=== PATIENT | female | born 1995 | race Caucasian/White ===

== ENCOUNTER 2017-03-22 08:25 | Emergency (ER) | payer BC, OTHER ==
[2017-03-22 08:35] VITALS: BP 140/83
[2017-03-22] MEDS ORDERED: predniSONE TAB* 20 MG PO ONE (08:42)
--- NOTE | 2017-03-22 08:48 | UC ---
Skin Complaint HPI - HPI Summary HPI Summary: RASH ON BOTH ARMS, NECK AND FACE X 3 DAYS + ITCHY, ? POISON JJ HAS BEEN WEED WHACKING 3 DAYS AGO NO SOB, NO WHEEZING - History of Current Complaint Chief Complaint: UCSkin Time Seen by Provider: 03/22/17 08:39 Stated Complaint: RASH Hx Obtained From: Patient Hx Last Menstrual Period: 03/17/17 ?: No Onset/Duration: Gradual Onset, Lasting Days - 1, Still Present Timing: Constant Onset Severity: Moderate Current Severity: Moderate Location: Discrete - BOTH ARMS, FACE AND NECK Character: Swelling, Pruritus, Redness Aggravating: Nothing Alleviating: Nothing Associated Signs & Symptoms: Positive: Rash - Allergy/Home Medications Allergies/Adverse Reactions: Allergies Allergy/AdvReac Type Severity Reaction Status Date / Time Penicillins [PCN] Allergy Unknown Unknown Verified 03/22/17 08:29 Reaction Details Review of Systems Constitutional: Negative Skin: Rash Eyes: Negative ENT: Negative Respiratory: Negative Cardiovascular: Negative All Other Systems Reviewed And Are Negative: Yes PMH/Surg Hx/FS Hx/Imm Hx Cardiovascular History Of: Denies: Pacemaker/ICD Respiratory History Of: Reports: Asthma - HX OF A CHILD - Surgical History Surgical History: Yes Surgery Procedure, Year, and Place: TONSILLECTOMY. REPAIR OF FRACTURED NOSED X 2 - Family History Known Family History: Negative: Diabetes - Social History Alcohol Use: Rare Substance Use Type: None Smoking Status (MU): Never Smoked Tobacco Physical Exam Triage Information Reviewed: Yes Appearance: Well-Appearing, No Pain Distress, Well-Nourished Vital Signs: Initial Vital Signs Temp 97.9 F 03/22/17 08:30 Pulse 76 03/22/17 08:30 Resp 18 03/22/17 08:30 BP 140/83 03/22/17 08:30 Pulse Ox 99 03/22/17 08:30 Vital Signs Reviewed: Yes Eye Exam: Normal Eyes: Positive: Conjunctiva Clear ENT: Positive: Normal ENT inspection, Hearing grossly normal, Pharynx normal Neck: Positive: Supple Respiratory: Positive: Chest non-tender, Lungs clear, Normal breath sounds Cardiovascular: Positive: RRR, No Murmur, Pulses Normal Musculoskeletal Exam: Normal Skin: Positive: rashes - MACULOPAPULARY RASH ON BOTH ARMS, FACE AND NECK Course/Dx - Diagnoses Provider Diagnoses: POISON JJ Discharge - Discharge Plan Condition: Stable Disposition: HOME Prescriptions: predniSONE TAB* [Deltasone TAB*] 40 mg PO DAILY #10 tab Patient Education Materials: Poison Jj (ED) Referrals: Sam Billings MD [Primary Care Provider] - If Needed
== END 2017-03-22 09:09 | disposition home or self-care (01) ==
LOC: UCCORT 08:25
DX: L23.7 Allergic contact dermatitis due to plants, except food (principal); Z88.0 Allergy status to penicillin; J45.909 Unspecified asthma, uncomplicated
CPT/HCPCS: 99212; G0463; J7512

== ENCOUNTER 2017-03-31 09:31 | Emergency (ER) | payer BC ==
[2017-03-31 10:08] VITALS: BP 136/69
--- NOTE | 2017-03-31 10:11 | UC ---
Skin Complaint HPI - HPI Summary HPI Summary: rash on arms, neck , face x 2 weeks + poison milagros , was placed on prednisone with good improvement, rash came back after she was done with prednisone + itchy, no new food , detergent, soap - History of Current Complaint Chief Complaint: UCRash Time Seen by Provider: 03/31/17 09:38 Stated Complaint: RASH Hx Obtained From: Patient Hx Last Menstrual Period: 03/11/17 ?: No Onset/Duration: Gradual Onset, Lasting Weeks - 2, Still Present Timing: Constant Onset Severity: Moderate Current Severity: Moderate Pain Intensity: 0 Pain Scale Used: 0-10 Numeric Location: Face, Other - arms, chest, neck Character: Pruritus, Redness Aggravating: Nothing Alleviating: Other - prednisone Associated Signs & Symptoms: Positive: Rash. Negative: Nausea, Vomiting, Numbness, Thirst, Diaphoresis, Weakness, Pallor, Shivering, Fever, Chills, Cough , Chest Pain, Hoarseness, Abdominal Pain - Allergy/Home Medications Allergies/Adverse Reactions: Allergies Allergy/AdvReac Type Severity Reaction Status Date / Time Penicillins [PCN] Allergy Unknown Unknown Verified 03/31/17 09:38 Reaction Details Review of Systems Constitutional: Negative Skin: Rash Eyes: Negative ENT: Negative Respiratory: Negative Cardiovascular: Negative All Other Systems Reviewed And Are Negative: Yes PMH/Surg Hx/FS Hx/Imm Hx Previously Healthy: Yes - Surgical History Surgical History: Yes Surgery Procedure, Year, and Place: TONSILLECTOMY. REPAIR OF FRACTURED NOSED X 2 - Family History Known Family History: Negative: Diabetes - Social History Alcohol Use: Rare Substance Use Type: None Smoking Status (MU): Never Smoked Tobacco Physical Exam Triage Information Reviewed: Yes Appearance: Well-Appearing, No Pain Distress, Well-Nourished Vital Signs: Initial Vital Signs Temp 97.9 F 03/31/17 09:40 Pulse 72 03/31/17 09:40 Resp 18 03/31/17 09:40 BP 136/69 03/31/17 09:40 Pulse Ox 100 03/31/17 09:40 Vital Signs Reviewed: Yes Eyes: Positive: Conjunctiva Clear ENT: Positive: Normal ENT inspection, Hearing grossly normal, Pharynx normal Neck: Positive: Supple, Nontender, No Lymphadenopathy Respiratory: Positive: Chest non-tender, Lungs clear, Normal breath sounds Cardiovascular: Positive: RRR, No Murmur, Pulses Normal Abdominal Exam: Normal Abdomen Description: Positive: Nontender, Soft Bowel Sounds: Positive: Present Skin: Positive: rashes - maculopapulary rash on bilateral arms, neck and face Course/Dx - Diagnoses Provider Diagnoses: Dermatitis Discharge - Discharge Plan Condition: Stable Disposition: HOME Prescriptions: Triamcinolone 0.1% CREAM(NF) [Kenalog Cream 0.1%(NF)] 1 applic TOPICAL BID #60 gm predniSONE TAB* [Deltasone TAB*] 20 mg PO DAILY #7 tab Patient Education Materials: Dermatitis (ED) Referrals: Sam Billings MD [Primary Care Provider] - 7 Days Additional Instructions: ? Poison Milagros prednisone 20 mg daily x 7 days triamcinolone 2x per day
== END 2017-03-31 10:06 | disposition home or self-care (01) ==
LOC: UCCORT 09:31
DX: L30.9 Dermatitis, unspecified (principal); Z88.0 Allergy status to penicillin
CPT/HCPCS: 99212; G0463

== ENCOUNTER 2018-03-13 14:33 | Emergency (ER) | payer BC ==
[2018-03-13 15:11] VITALS: BP 132/81
--- NOTE | 2018-03-13 15:19 | UC ---
Skin Complaint HPI - HPI Summary HPI Summary: Pt c/o of itchy rash on left upper extremity and left side of neck. She has a known exposure to poison jj. - History of Current Complaint Hx Obtained From: Patient Hx Last Menstrual Period: 02/28/18 ?: No Onset/Duration: Sudden Onset, Still Present Skin Exposure Onset/Duration: Days Ago Timing: Constant Onset Severity: Mild Current Severity: Mild Pain Intensity: 0 Pain Scale Used: 0-10 Numeric Location: Discrete - left arm and left side of anterior neck Character: Pruritus, Redness Aggravating Factor(s): Touch Alleviating Factor(s): Nothing Associated Signs & Symptoms: Positive: Rash Related History: Possible Reaction to: Environmental Exposure Similar Episode/Dx as: poison jj <Jacinda Kinsey NP - Last Filed: 03/13/18 15:14> <Garima Mehta - Last Filed: 03/13/18 16:13> - History of Current Complaint Chief Complaint: UCSkin Time Seen by Provider: 03/13/18 15:00 Stated Complaint: SKIN COMPLAINT - POISON JJ - Allergy/Home Medications Allergies/Adverse Reactions: Allergies Allergy/AdvReac Type Severity Reaction Status Date / Time MS Penicillins [PCN] Allergy Unknown Unknown Verified 03/13/18 14:56 Reaction Details Review of Systems Constitutional: Negative Skin: Rash Eyes: Negative ENT: Negative Respiratory: Negative Cardiovascular: Negative Gastrointestinal: Negative Genitourinary: Negative Motor: Negative Neurovascular: Negative Musculoskeletal: Negative Neurological: Negative Psychological: Negative Is Patient Immunocompromised?: No All Other Systems Reviewed And Are Negative: Yes <Jacinda Kinsey NP - Last Filed: 03/13/18 15:14> PMH/Surg Hx/FS Hx/Imm Hx Previously Healthy: Yes - Surgical History Surgical History: Yes Surgery Procedure, Year, and Place: TONSILLECTOMY. REPAIR OF FRACTURED NOSED X 2 - Family History Known Family History: Negative: Diabetes - Social History Occupation: Employed Full-time Lives: With Family Alcohol Use: Rare Substance Use Type: None Smoking Status (MU): Never Smoked Tobacco Have You Smoked in the Last Year: No <Jacinda Kinsey NP - Last Filed: 03/13/18 15:14> Physical Exam Triage Information Reviewed: Yes Appearance: Well-Appearing Vital Signs: Initial Vital Signs Temp 97.8 F 03/13/18 14:53 Pulse 89 03/13/18 14:53 Resp 17 03/13/18 14:53 BP 132/81 03/13/18 14:53 Pulse Ox 100 03/13/18 14:53 Eye Exam: Normal ENT: Positive: Hearing grossly normal Respiratory: Positive: No respiratory distress Musculoskeletal Exam: Normal Neurological Exam: Normal Psychological Exam: Normal Skin: Positive: rashes - left upper arm, left side of neck <Jacinda Kinsey NP - Last Filed: 03/13/18 15:14> Vital Signs: Initial Vital Signs Temp 97.8 F 03/13/18 14:53 Pulse 89 03/13/18 14:53 Resp 17 03/13/18 14:53 BP 132/81 03/13/18 14:53 Pulse Ox 100 03/13/18 14:53 <Garima Mehta - Last Filed: 03/13/18 16:13> Course/Dx - Differential Diagnoses - Skin Complaint Differential Diagnoses: Contact Dermatitis, Poison Jj - Diagnoses Provider Diagnoses: contact dermatitis. poison jj exposure <Jacinda Kinsey NP - Last Filed: 03/13/18 15:14> Discharge - Sign-Out/Discharge Documenting (check all that apply): Discharge/Admit/Transfer - Billing Disposition and Condition Condition: STABLE Disposition: HOME <Jacinda Kinsey NP - Last Filed: 03/13/18 15:14> - Billing Disposition and Condition Condition: STABLE Disposition: HOME <Garima Mehta - Last Filed: 03/13/18 16:13> - Discharge Plan Condition: Stable Disposition: HOME Prescriptions: predniSONE TAB* [Deltasone TAB*] 20 mg PO DAILY #4 tab Patient Education Materials: Poison Jj (ED) Referrals: Sam Billings MD [Primary Care Provider] - If Needed Attestation Statement User Type: Provider - I was available for consult. This patient was seen by the HARDY. The patient was not presented to, seen by, or examined by me. -Jovany <Garima Mehta - Last Filed: 03/13/18 16:13>
== END 2018-03-13 15:08 | disposition home or self-care (01) ==
LOC: UCCORT 14:33
DX: L23.7 Allergic contact dermatitis due to plants, except food (principal); Z88.0 Allergy status to penicillin
CPT/HCPCS: 99212; G0463

== ENCOUNTER 2018-03-21 07:55 | Emergency (ER) | payer BC ==
[2018-03-21 08:15] VITALS: BP 128/88
--- NOTE | 2018-03-21 08:26 | UC ---
Skin Complaint HPI - HPI Summary HPI Summary: skin rash x 10 days was dx with poison milagros on 03/13/18 , placed on prednisone , had some improvement on prednisone but the rash is coming back since she stopped prednisone the rash is itchy , mostly on her neck and upper chest , some on her arms no fever, no chills. - History of Current Complaint Chief Complaint: UCSkin Time Seen by Provider: 03/21/18 08:16 Stated Complaint: SKIN COMPLAINT Hx Obtained From: Patient Hx Last Menstrual Period: 02/28/18 Onset/Duration: Gradual Onset, Lasting Days - 10, Still Present Timing: Constant Onset Severity: Moderate Current Severity: Moderate Pain Intensity: 0 Location: Other - neck , upper ches, bilateral arms Character: Swelling, Pruritus, Redness, Raised Aggravating Factor(s): Nothing Alleviating Factor(s): Other - prednisone Associated Signs & Symptoms: Positive: Rash. Negative: Nausea, Vomiting, Numbness, Thirst, Diaphoresis, Weakness, Pallor, Shivering, Fever, Chills, Cough , Wheezing, Chest Pain Related History: Possible Reaction to: Environmental Exposure - poiso milagros - Allergy/Home Medications Allergies/Adverse Reactions: Allergies Allergy/AdvReac Type Severity Reaction Status Date / Time Penicillins Allergy Unknown Unknown Verified 03/21/18 08:14 Reaction Details Review of Systems Constitutional: Negative Skin: Rash Eyes: Negative ENT: Negative Respiratory: Negative Cardiovascular: Negative Gastrointestinal: Negative Is Patient Immunocompromised?: No All Other Systems Reviewed And Are Negative: Yes PMH/Surg Hx/FS Hx/Imm Hx Previously Healthy: Yes - Surgical History Surgical History: Yes Surgery Procedure, Year, and Place: TONSILLECTOMY. REPAIR OF FRACTURED NOSED X 2 - Family History Known Family History: Negative: Diabetes - Social History Alcohol Use: Rare Substance Use Type: None Smoking Status (MU): Never Smoked Tobacco Have You Smoked in the Last Year: No Physical Exam Triage Information Reviewed: Yes Appearance: Well-Appearing, No Pain Distress, Well-Nourished Vital Signs: Initial Vital Signs Temp 97.6 F 03/21/18 08:03 Pulse 76 03/21/18 08:03 Resp 18 03/21/18 08:03 BP 128/88 03/21/18 08:03 Pulse Ox 100 03/21/18 08:03 Eye Exam: Normal Eyes: Positive: Conjunctiva Clear ENT Exam: Normal ENT: Positive: Normal ENT inspection, Hearing grossly normal, Pharynx normal Neck: Positive: Supple, Nontender, No Lymphadenopathy Respiratory: Positive: Chest non-tender, Lungs clear, Normal breath sounds Cardiovascular: Positive: RRR, No Murmur, Pulses Normal Abdominal Exam: Normal Skin: Positive: rashes - linear papular rash, raise and erythema, located on her neck, upper chest, bilateral arms Course/Dx - Diagnoses Provider Diagnoses: poison milagros Discharge - Sign-Out/Discharge Documenting (check all that apply): Discharge/Admit/Transfer - Discharge Plan Condition: Stable Disposition: HOME Prescriptions: predniSONE [Prednisone] 20 mg PO BID #10 tablet Triamcinolone 0.1% CREAM (NF) [Kenalog 0.1% Cream (NF)] 1 applic TOPICAL BID # 60 gm Patient Education Materials: Poison Milagros (ED) Referrals: Sam Billings MD [Primary Care Provider] - If Needed - Billing Disposition and Condition Condition: STABLE Disposition: HOME
== END 2018-03-21 08:25 | disposition home or self-care (01) ==
LOC: UCCORT 07:55
DX: Z51.89 Encounter for other specified aftercare (principal); Z88.0 Allergy status to penicillin; L23.7 Allergic contact dermatitis due to plants, except food; T63.79 Toxic effect of contact with other venomous plant; Y93.9 Activity, unspecified; Y92.9 Unspecified place or not applicable
CPT/HCPCS: 99212; G0463

== ENCOUNTER 2019-08-09 14:51 | Emergency (ER) | payer BC ==
[2019-08-09 15:18] VITALS: BP 136/90
--- NOTE | 2019-08-09 15:35 | UC ---
Respiratory Complaint HPI - HPI Summary HPI Summary: Pt presents with c/o cough, chest, congestion, wheezing, sob with exertions, fever, chills X 1 week. - History of Current Complaint Chief Complaint: UCRespiratory Stated Complaint: COUGH Time Seen by Provider: 08/09/19 15:21 Hx Last Menstrual Period: 07/16/19 ?: No Onset/Duration: Gradual Onset, Lasting Days - 10, Still Present, Worse Since - osnet Timing: Intermittent Episodes - cough is intermittent and worsens with recumbent position Severity Initially: Mild Severity Currently: Moderate Pain Intensity: 3 Character: Cough: Nonproductive Aggravating Factors: Exertion, Deep Breaths, Recumbent Position Alleviating Factors: Nothing Associated Signs And Symptoms: Positive: Fever, Wheezing, URI, Nasal Congestion - Risk Factors Pulmonary Embolism Risk Factors: Oral Contraceptives Cardiac Risk Factors: Negative Pseudomonas Risk Factors: Negative Tuberculosis Risk Factors: Negative - Allergies/Home Medications Allergies/Adverse Reactions: Allergies Allergy/AdvReac Type Severity Reaction Status Date / Time Penicillins Allergy Unknown Unknown Verified 08/09/19 15:08 Reaction Details Home Medications: Home Medications D-Methorphan/PE/Acetaminophen [Vicks Dayquil Liquicaps] 1 cap PO PRN 08/09/19 [ History] Guaifenesin/Pseudoephedrne HCl [Mucinex D ER 1,200-120 mg Tab] 1 tab PO PRN 08/18 [History] guaiFENesin ER TAB [Mucinex*] 600 mg PO BID PRN 08/09/19 [History Confirmed 08/18] PMH/Surg Hx/FS Hx/Imm Hx Previously Healthy: Yes - Surgical History Surgical History: Yes Surgery Procedure, Year, and Place: TONSILLECTOMY. REPAIR OF FRACTURED NOSED X 2 - Family History Known Family History: Negative: Diabetes - Social History Occupation: Employed Full-time Lives: With Family Alcohol Use: Rare Substance Use Type: None Smoking Status (MU): Never Smoked Tobacco Have You Smoked in the Last Year: No - Immunization History Vaccination Up to Date: Yes Review of Systems All Other Systems Reviewed And Are Negative: Yes Constitutional: Positive: Fever, Chills, Fatigue Skin: Positive: Negative Eyes: Positive: Negative ENT: Positive: Sore Throat, Sinus Congestion Respiratory: Positive: Shortness Of Breath, Cough Cardiovascular: Positive: Negative Gastrointestinal: Positive: Negative Genitourinary: Positive: Negative Motor: Positive: Negative Neurovascular: Positive: Negative Musculoskeletal: Positive: Myalgia Neurological: Positive: Headache Psychological: Positive: Negative Is Patient Immunocompromised?: No Physical Exam Triage Information Reviewed: Yes Appearance: Ill-Appearing Vital Signs: Initial Vital Signs Temp 98.2 F 08/09/19 15:12 Pulse 104 08/09/19 15:12 Resp 24 08/09/19 15:12 BP 136/90 08/09/19 15:12 Pulse Ox 100 08/09/19 15:12 Vital Signs Reviewed: Yes Eye Exam: Normal ENT: Positive: Nasal congestion Dental Exam: Normal Neck exam: Normal Respiratory: Positive: Decreased breath sounds, Wheezing Cardiovascular Exam: Normal Musculoskeletal Exam: Normal Neurological Exam: Normal Psychological Exam: Normal Skin Exam: Normal Respiratory Course/Dx - Differential Dx/Diagnosis Differential Diagnosis/HQI/PQRI: Bronchitis Provider Diagnosis: Wheezing, Bronchitis Discharge ED - Sign-Out/Discharge Documenting (check all that apply): Patient Departure All imaging exams completed and their final reports reviewed: No Studies - Discharge Plan Condition: Stable Disposition: HOME Prescriptions: Albuterol HFA INHALER* [Ventolin HFA Inhaler*] 1 - 2 puff INH Q4H PRN #1 mdi PRN Reason: Sob/Wheezing Azithromycin TAB* [Zithromax TAB (Z-JOSH) 250 mg #6 tabs] 2 tab PO .TODAY, THEN 1 DAILY #1 josh Benzonatate CAP* [Tessalon 100 MG CAP*] 200 mg PO Q8H PRN #30 cap PRN Reason: Cough predniSONE TAB* [Deltasone 10 MG TAB*] 30 mg PO DAILY #12 tab Patient Education Materials: Pneumonia (ED), Wheezing (ED) Referrals: Sam Billings MD [Primary Care Provider] - If Needed - Billing Disposition and Condition Condition: STABLE Disposition: Home - Attestation Statements Provider Attestation: Per institutional requirements, I have reviewed the chart, however, I was not consulted specifically or made aware of this patient by the midlevel provider. I did not personally evaluate, interact with , or disposition this patient.
== END 2019-08-09 15:44 | disposition home or self-care (01) ==
LOC: UCCORT 14:51
DX: J40 Bronchitis, not specified as acute or chronic (principal); R06.2 Wheezing; R53.83 Other fatigue; Z88.0 Allergy status to penicillin
CPT/HCPCS: 99212; G0463

== ENCOUNTER 2022-07-02 09:43 | Inpatient (IN) ==
[2022-07-02 10:22] LABS: Hematocrit 35 % (35-47); Hemoglobin 11.7 g/dL (12.0-16.0); Mean Corpuscular HGB Conc 34 g/dL (31-36); Mean Corpuscular Hemoglobin 31 pg (27-31); Mean Corpuscular Volume 91 fL (80-97); Mean Platelet Volume 9.8 fL (7.4-10.4); Platelet Count 183 10^3/uL (150-450); Red Blood Count 3.81 10^6 /uL (3.70-4.87); Red Cell Distribution Width 14 % (10-15); White Blood Count 9.3 10^3/uL (3.5-10.8)
[2022-07-02] MEDS ORDERED: Dexamethasone IV 4 MG/ML VIAL 1 ml VIAL ONE (11:26)
[2022-07-02] MEDS ORDERED: Morphine PF AMP (0.5MG/ML) 5 MG/10 ML AMP ONE (11:26)
[2022-07-02] MEDS ORDERED: Ondansetron 4 mg VIAL 2 MG/ML 2 ml VIAL ONE (11:26)
[2022-07-02] MEDS ORDERED: Oxytocin 10 UNITS/ML 1 ML VIAL ONE (11:26)
[2022-07-02] MEDS ORDERED: fentaNYL 100 mcg/2 ml 50 MCG/ML VIAL ONE (11:26)
[2022-07-02] MEDS ORDERED: ceFOXitin 2 GM PREMIX 50 ML IVPB ONE (12:00)
[2022-07-02] MEDS ORDERED: Sodium Citrate/Citric Acid LIQ 15 ML UDC ONE (12:00)
[2022-07-02] MEDS ORDERED: Phenylephrine 40 mcg/mL 10mL (400mcg) SYRINGE ONE (12:55)
[2022-07-02] MEDS ORDERED: Acetaminophen IV 1 GM/100ML 1,000 MG/100 ML BAG IV ONE (13:23)
[2022-07-02] MEDS ORDERED: Metoclopramide 5 MG/ML VIAL (10 mg) IV PRN (14:42)
[2022-07-02] MEDS ORDERED: Ondansetron 4 mg VIAL 2 MG/ML 2 ml VIAL IV PRN (14:42)
[2022-07-02] MEDS ORDERED: Naloxone 0.4 mg VIAL 0.4 mg/ml 1 ml VIAL IV PUSH PRN (14:42)
[2022-07-02] MEDS ORDERED: Acetaminophen IV 1 GM/100ML 1,000 MG/100 ML BAG IV PRN (14:42)
[2022-07-02] MEDS ORDERED: Glycerin ADULT 2.4 gm SUPP PR PRN (22:48)
[2022-07-02] MEDS ORDERED: Witch Hazel PAD JAR TOPICAL PRN (22:48)
[2022-07-02] MEDS ORDERED: Lactated Ringers 1000 ml BAG 1,000 ML IV SCH (23:00)
[2022-07-03 06:40] LABS: ABS Lymphocytes 2.7 10^3/ul (1.0-4.8); ABS Neutrophils 9.1 10^3/ul (1.5-7.7); Eosinophil % 0.2 %; Hematocrit 30 % (35-47); Hemoglobin 10.1 g/dL (12.0-16.0); Lymphocyte % 21.1 %; Mean Corpuscular HGB Conc 34 g/dL (31-36); Mean Corpuscular Hemoglobin 32 pg (27-31); Mean Corpuscular Volume 92 fL (80-97); Mean Platelet Volume 9.1 fL (7.4-10.4); Platelet Count 168 10^3/uL (150-450); Red Blood Count 3.22 10^6 /uL (3.70-4.87); Red Cell Distribution Width 14 % (10-15)
[2022-07-03] MEDS ORDERED: RHO D Immune Globulin (HUMAN) 300 MCG = 1,500 I.U. INJ IM ONE (09:59)
[2022-07-05 12:05] VITALS: BP 132/90
== END 2022-07-05 14:24 | disposition home or self-care (01) | DRG 540 ==
LOC: MCHOB 09:43
PROVIDERS: ADMIT Obstetrics & Gynecology; ATTEND Obstetrics & Gynecology

== ENCOUNTER 2024-02-18 04:59 | Inpatient (IN) ==
[2024-02-18] MEDS ORDERED: Lidocaine 1% VIAL 10 MG/ML 30 ML VIAL INJ PRN (06:11)
[2024-02-18] MEDS ORDERED: Prochlorperazine 5 mg/ml 2 ml VIAL (10 mg) IV PRN (06:11)
[2024-02-18] MEDS ORDERED: Nalbuphine 10 MG/ML 1 ML VIAL IV PRN (06:11)
[2024-02-18 06:44] LABS: ABS Eosinophils 0.1 10^3/uL (0.0-0.5); ABS Lymphocytes 2.1 10^3/uL (1.0-4.8); ABS Monocytes 0.7 10^3/uL (0.0-0.9); ABS Neutrophils 8.2 10^3/uL (1.5-7.6); ABS Nucleated RBC 0.01 10^3/ul; Eosinophil % 0.6 %; Hematocrit 34.9 % (35-45); Hemoglobin 11.9 g/dL (11.5-14.3); Lymphocyte % 19.2 %; Mean Corpuscular Hemoglobin 31.2 pg (27-33); Mean Corpuscular Hgb Conc 34.2 g/dL (31-36); Mean Corpuscular Volume 91.2 fL (80-97); Mean Platelet Volume 9.5 fL (7.5-11.2); Nucleated Red Blood Cells % 0.1 %/100WBC (0.0-0.8); Platelet Count 223 10^3/uL (150-450); Red Blood Count 3.82 10^6/uL (3.63-4.92); Red Cell Distribution Width 14.8 % (12-17); White Blood Count 11.1 10^3/uL (3.8-11.8)
[2024-02-18 07:14] LABS: Urine Benzodiazepine Screen None Detected (None Detect); Urine Cannabinoids Screen None Detected (None Detect); Urine Opiates Screen None Detected (None Detect)
[2024-02-18 07:23] LABS: Albumin 3.4 g/dL (3.2-5.2); Albumin/Globulin Ratio 1.3 (1-3); Calcium 8.6 mg/dL (8.6-10.3); Creatinine, Serum 0.51 mg/dL (0.51-0.95); Globulin 2.6 g/dL (2-4); Potassium 4.1 mmol/L (3.5-5.0); Total Bilirubin 0.3 mg/dL (0.2-1.0); eGFR CKD-EPI 128.7 (>60)
[2024-02-18] MEDS: Lactated Ringers 1000 ml BAG 1,000 ML IV ONE (10:15)
[2024-02-18] MEDS: Lactated Ringers 1000 ml BAG 1,000 ML IV SCH (11:00)
[2024-02-18] MEDS ORDERED: Oxytocin 10 UNITS/ML 1 ML VIAL ONE (11:38)
[2024-02-18] MEDS ORDERED: Ondansetron 4 mg VIAL 2 MG/ML 2 ml VIAL ONE (11:40)
[2024-02-18] MEDS ORDERED: Phenylephrine IV 10 MG/ML 1 ml VIAL ONE (11:41)
[2024-02-18] MEDS ORDERED: fentaNYL 100 mcg/2 ml 50 MCG/ML VIAL ONE (12:20)
[2024-02-18] MEDS ORDERED: Morphine PF AMP (0.5MG/ML) 5 MG/10 ML AMP ONE (12:20)
[2024-02-18] MEDS: Sodium Citrate/Citric Acid LIQ 15 ML UDC PO ONE (12:38)
[2024-02-18] MEDS: ceFAZolin 2 GM PREMIX 2 G/50 ML BAG IVPB ONE (12:45)
[2024-02-18] MEDS: ceFAZolin 2 GM PREMIX 2 GM/50 ML BAG ONE (12:45)
[2024-02-18] MEDS ORDERED: Acetaminophen IV 1 GM/100ML 1,000 MG/100 ML BAG IV ONE (13:03)
[2024-02-18] MEDS ORDERED: Dexamethasone IV 4 MG/ML VIAL 1 ml VIAL ONE (13:07)
[2024-02-18] MEDS ORDERED: Metoclopramide 5 MG/ML VIAL (10 mg) IV PRN (13:18)
[2024-02-18] MEDS ORDERED: Naloxone 0.4 mg VIAL 0.4 mg/ml 1 ml VIAL IV PUSH PRN (13:18)
[2024-02-18] MEDS ORDERED: Ondansetron 4 mg VIAL 2 MG/ML 2 ml VIAL IV PRN (13:18)
[2024-02-18] MEDS ORDERED: Acetaminophen IV 1 GM/100ML 1,000 MG/100 ML BAG IV PRN (13:18)
[2024-02-18 13:34] LABS: Urine Appearance Clear; Urine Bilirubin Negative (Negative); Urine Blood Negative (Negative); Urine Color Colorless; Urine Glucose Negative (Negative); Urine Ketones 1+ (Negative); Urine Nitrite Negative (Negative); Urine Protein Negative (Negative); Urine Specific Gravity 1.008 (1.002-1.030); Urine Urobilinogen Negative (Negative)
[2024-02-18] MEDS: Oxytocin in LR 20,000 MILLI.UNIT/1,000 ML BAG IV SCH (13:45)
[2024-02-18] MEDS ORDERED: Dibucaine 1% OINT 28.35 GM TUBE PR PRN (14:02)
[2024-02-18] MEDS ORDERED: Glycerin ADULT 2.4 gm SUPP PR PRN (14:02)
[2024-02-18] MEDS ORDERED: Witch Hazel PAD JAR TOPICAL PRN (14:02)
[2024-02-18] MEDS ORDERED: Lactated Ringers 1000 ml BAG 1,000 ML IV SCH (15:00)
[2024-02-19 07:17] LABS: ABS Basophils 0.1 10^3/uL (0.0-0.1); ABS Lymphocytes 3.1 10^3/uL (1.0-4.8); ABS Monocytes 0.9 10^3/uL (0.0-0.9); ABS Neutrophils 8.4 10^3/uL (1.5-7.6); Eosinophil % 0.3 %; Hematocrit 31.5 % (35-45); Hemoglobin 10.7 g/dL (11.5-14.3); Lymphocyte % 24.6 %; Mean Corpuscular Hemoglobin 31.4 pg (27-33); Mean Corpuscular Hgb Conc 34.1 g/dL (31-36); Mean Corpuscular Volume 92.2 fL (80-97); Mean Platelet Volume 9.5 fL (7.5-11.2); Platelet Count 192 10^3/uL (150-450); Red Blood Count 3.41 10^6/uL (3.63-4.92); Red Cell Distribution Width 15.1 % (12-17); White Blood Count 12.5 10^3/uL (3.8-11.8)
[2024-02-19] MEDS: Buffered Lidocaine 1% SYRIN 1 ml INTRADERM ONE (19:16)
[2024-02-20 08:39] VITALS: BP 135/88
[2024-02-20] MEDS: RHO D Immune Globulin (HUMAN) 300 MCG = 1,500 I.U. INJ IM ONE (10:43)
== END 2024-02-20 14:21 | disposition home or self-care (01) | DRG 540 ==
LOC: MCHOBOUT 04:59 → MCHOB 06:06
PROVIDERS: ADMIT Obstetrics & Gynecology; ATTEND Obstetrics & Gynecology